=== PATIENT | male | born 1990 ===

== ENCOUNTER 2017-09-20 16:39 | Emergency (ER) | payer BC, OTHER ==
[2017-09-20 17:39] VITALS: BP 120/72
--- NOTE | 2017-09-20 18:17 | UC ---
Ophelia Menendez Nilda, scribed for Abbey Sykes MD on 09/20/17 at 1758 . Dental HPI - HPI Summary HPI Summary: This patient is a 27 year old M presenting to [facility] accompanied by so requesting for suture removal on left upper jaw gumline. Pt states he had a dental procedure about 9 days ago in [place] to remove infected tissue from molar. Per patient, dentist stated his sutures must be removed after 7-10 days. Dentist is located in [place] and pt is unable to revisit dentist in time to remove sutures. PT reports was instructed "anyone" can remove sutures. The patient rates the pain (ache) 1/10 in severity. Pain alleviated by ibuprofen which was last taken yesterday at noon. Patient denies bleeding in area, fever, chills, and concerns for infection. He states he is not on blood thinners or any other daily medications. Review of paperwork states 6 6-0prolene sutures Patients medication reviewed this visit. - History of Current Complaint Chief Complaint: UCGeneralIllness Stated Complaint: SUTURE REMOVAL Time Seen by Provider: 09/20/17 17:32 Hx Obtained From: Patient Onset/Duration: Lasting Days, Still Present Severity: Mild Pain Intensity: 1 Pain Scale Used: 0-10 Numeric Alleviating Factor(s): OTC Meds Related History: Other - operation - Allergies/Home Medications Allergies/Adverse Reactions: Allergies Allergy/AdvReac Type Severity Reaction Status Date / Time Clindamycin Allergy Hives Verified 09/20/17 17:39 Home Medications: Home Medications Ibuprofen [Advil] 200 mg PO 09/20/17 [History] PMH/Surg Hx/FS Hx/Imm Hx Previously Healthy: Yes - Surgical History Surgical History: Yes Surgery Procedure, Year, and Place: wisdom teeth - Family History Known Family History: Negative: Hypertension, Diabetes - Social History Occupation: Student Lives: With Family Alcohol Use: None Substance Use Type: None Smoking Status (MU): Never Smoked Tobacco Review of Systems Constitutional: Other - negative fever, chills, concern for infection ENT: Other - sutures on left upper jaw; negative bleeding in affected area. Is Patient Immunocompromised?: No All Other Systems Reviewed And Are Negative: Yes Physical Exam Triage Information Reviewed: Yes Appearance: Well-Appearing, No Pain Distress, Well-Nourished Vital Signs: Initial Vital Signs Temp 97.9 F 11/21/17 17:33 Pulse 59 09/20/17 17:33 Resp 16 09/20/17 17:33 BP 120/72 09/20/17 17:33 Pulse Ox 100 09/20/17 17:33 Vital Signs Reviewed: Yes Eyes: Positive: Conjunctiva Clear ENT: Positive: Other - left upper gumline above #15-16 pt with 6 simple interrupted sutures. no open wounds, bleeding, fluctuance No pain with palpation using gentle retraction of cheek, magnification and light removed 6 sutures scant bleeding at one site Neck exam: Normal Respiratory Exam: Normal Respiratory: Positive: Chest non-tender, Lungs clear, Normal breath sounds, No respiratory distress, No accessory muscle use Cardiovascular Exam: Normal Cardiovascular: Positive: RRR, No Murmur, Pulses Normal Abdominal Exam: Normal Abdomen Description: Positive: Nontender, No Organomegaly Dental Complaint Course/Dx - Course Course Of Treatment: Sutures removed. Pt is stable and will be D/C home. Pt understands and is agreeable with this plan. d/w pt possible small piece retained piece of 1 suture material. Unable to identified and extract. will leave for fear of trauma to recent graft. pt states understanding and agree - Differential Dx/Diagnosis Provider Diagnoses: suture removal Discharge - Discharge Plan Condition: Stable Disposition: HOME Prescriptions: Chlorhexidine MW 0.12% 473ML* [Peridex Mouth Wash 0.12%*] 15 ml MT Q8HR #150 btl Patient Education Materials: Stitches Removal (ED) Referrals: Non Staff,Doctor [Primary Care Provider] - Additional Instructions: swish and spit with chlorexadine mouth rinse 3 times a day for 5 days As discussed with the doctor that evaluated you today, there may be a small piece of retained suture material. If this is present, the body should push it out to the surface Alternate ibuprofen (advil, Motrin) and tylenol every 3 hours for pain Stay well hydrated - drink plenty of non-alcoholic, non-caffinated beverage if you have questions or concerns, your should contact your dental surgeon in [place] The documentation as recorded by the Ophelia de los santos Nilda accurately reflects the service I personally performed and the decisions made by , Abbey Sykes MD.
== END 2017-09-20 18:24 | disposition home or self-care (01) ==
LOC: UCEAST 16:39
DX: S01.502D Unspecified open wound of oral cavity, subsequent encounter (principal); X58.XXXD Exposure to other specified factors, subsequent encounter
CPT/HCPCS: 99201; G0463